=== PATIENT | male | born 1940 | race Caucasian/White ===

== ENCOUNTER 2017-03-26 08:00 | Emergency (ER) | payer OTHER, MEDICARE ==
[2017-03-26] MEDS ORDERED: Lidocaine 1% 20 ML MDV ONE (08:22)
[2017-03-26] MEDS ORDERED: Bacitracin Zinc 1 Packet ONE (08:42)
== END 2017-03-26 08:57 | disposition home or self-care (01) ==
LOC: NAV ERS 08:00
DX: S51.812A Laceration without foreign body of left forearm, initial encounter (principal); E78.5 Hyperlipidemia, unspecified; I10 Essential (primary) hypertension; F17.220 Nicotine dependence, chewing tobacco, uncomplicated; W26.0XXA Contact with knife, initial encounter
CPT/HCPCS: 12001; J2001